=== PATIENT | male | born 1970 | race Caucasian/White ===

== ENCOUNTER 2025-07-03 16:53 | Emergency (ER) | payer OTHER, SELFPAY ==
[2025-07-03 16:53] VITALS: BP 166/81; PULSE 101; RESP 18; TEMP 37; O2SAT 96
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
[2025-07-03] MEDS: Diph,Pertuss(Acell),Tet Vac/Pf 0.5 ML SYR IM (17:44)
[2025-07-03] MEDS: Cephalexin 500 MG CAP PO (18:22)
== END 2025-07-03 18:30 | disposition home or self-care (01) ==
LOC: ER 18:30
PROVIDERS: Emergency Provider Registered Nurse Emergency
DX: S01.311A Laceration without foreign body of right ear, initial encounter (principal); W22.8XXA Striking against or struck by other objects, initial encounter; Y93.55 Activity, bike riding; Z23 Encounter for immunization
CPT/HCPCS: 99283; 99284; 90471; 90715